=== PATIENT | male | born 1990 | race Caucasian/White ===

== ENCOUNTER 2020-06-25 13:44 | Emergency (ER) | payer OTHER, SELFPAY ==
--- NOTE | ~2020-06-25 | XR_ITS ---
EXAMINATION: XR hand RT min 3V EXAM DATE: 06/25/2020 14:10 INDICATION: Initial encounter following injury, with pain of the right hand. TECHNIQUE: Right hand frontal, lateral and oblique projections obtained and reviewed. There is no pr ior study for comparison. FINDINGS: There is old right 5th metacarpal fracture. There is cortical irregularity at the proximal aspect of the 4th metacarpal bone, could be an acute closed posttraumatic fracture although can't co mpletely exclude that this is chronic finding given the 5th metacarpal fracture. This finding has bee n indicated, marked on the examination for review, clinical correlation. Did patient have known 4th metacarpal fracture as well? IMPRESSION: Right 4th metacarpal cortical irregularity proximally, could be acute nondisplaced fract ure into the carpometacarpal joint. Clinical correlation. Reviewed, dictated and finalized at location A. IMPRESSION: Right 4th metacarpal cortical irregularity proximally, could be ac roseann nondisplaced fracture into the carpometacarpal joint. Clinical correlation.
--- NOTE | 2020-06-25 13:51 | ED.UPPEXIN ---
HPI - Extremity Injury (Upper) General Chief Complaint: Extremity Injury, Upper Stated Complaint: right hand injury Time Seen by Provider: 06/25/20 13:51 Source: patient and RN notes reviewed History of Present Illness HPI narrative: Patient is a 29-year-old male who presents the urgent care with complaints of right hand pain. Patient states that 3 years ago he had a bad right hand fractures and it does intermittently cause him pain at times. Patient states that over the weekend he was doing a lot of yard work and noticed some swelling to the right hand and heard a pop . Patient denies of any known reinjury this weekend. Has not used anything for the pain. Has noticed increased stiffness in the mornings. No other acute complaints. No acute distress noted. Patient read the plan of care. Related Data Home Medications Medication Instructions Recorded Confirmed [id number] K tablet PO 06/25/20 [Adults Multivitamin] Allergies Allergy/AdvReac Type Severity Reaction Status Date / Time amoxicillin Allergy Severe Rash Verified 06/25/20 14:01 penicillin G Allergy Severe Rash Verified 06/25/20 14:01 Review of Systems Review of Systems: Narrative: CONSTITUTIONAL: Denies fever, chills, or sweats. EYES: Denies visual changes, redness, or discharge. ENT: Denies rhinorrhea, congestion, sore throat, or otalgia. CARDIOVASCULAR: Denies chest pain, palpitations, or edema. RESPIRATORY: Denies cough or dyspnea. GASTROINTESTINAL: Denies abdominal pain, nausea, vomiting, or diarrhea. GENITOURINARY: Denies dysuria or hematuria. SKIN: Denies rash or itching. MUSCULOSKELETAL: Reports of right hand pain and swelling NEUROLOGIC: Denies headache, numbness, or weakness. All other systems reviewed are negative, except as documented in HPI. PMFSH Comments At the time of my signature, I reviewed and agree with the nursing past medical, surgical, social, and family history. There is no relevant family history pertinent to the patient complaint. Exam Narrative: Exam Narrative: GENERAL: This is a well-nourished, well-developed patient, in no apparent distress. HEAD: normocephalic, atraumatic. EYES: PERRL. Sclera clear/white. Vision is grossly intact. EARS: External ears normal NOSE: External nose normal with no obvious nasal discharge, nares without redness, no rhinorrhea. THROAT: Mucous membranes moist NECK: Neck supple SKIN: warm, intact with no suspicious lesions or rash, good texture and turgor. NEURO: awake, alert, and oriented to person, place and time. There were no obvious focal neurologic abnormalities. EXTREMITIES: Course Vital Signs Vital signs: Vital Signs Temperature 99.2 F 06/25/20 13:53 Pulse Rate 93 06/25/20 13:53 Respiratory Rate 16 06/25/20 13:53 Blood Pressure 108/62 06/25/20 13:53 Pulse Oximetry 98 06/25/20 13:53 Temperature 99.2 F 06/25/20 13:53 Pulse Rate 93 06/25/20 13:53 Respiratory Rate 16 06/25/20 13:53 Blood Pressure 108/62 06/25/20 13:53 Pulse Oximetry 98 06/25/20 13:53 Reviewed MDM - Extremity Injury (Upper) MDM Narrative Medical decision making narrative: Reviewed x-ray results with the patient. He is aware the x-ray of the right hand x-ray is possible that there is an acute fracture, however due to your past it is likely an old fracture and does not necessarily need a temporary OCL placed at this time. Therefore, advised the patient to use his at home hand brace from his past orthopedic. Patient should refrain from injury strenuous activity involving the right hand. Use Tylenol/ibuprofen and ice as needed for pain and comfort. Take your disc and your x-ray report to your upcoming appointment with your PCP next week. If you prefer to follow-up with our plastics, use the referral on your discharge paperwork. Differential Diagnosis Differential diagnosis: Likely sprain and strain of wrist, finger sprain, dislocation of finger and fracture of hand Imaging
[2020-06-25 13:53] VITALS: BP 108/62; PULSE 93; RESP 16; TEMP 37.3; O2SAT 98
== END 2020-06-25 14:45 | disposition home or self-care (01) ==
PROVIDERS: Emergency Provider Nurse Practitioner Family
DX: G89.21 Chronic pain due to trauma (principal); M79.641 Pain in right hand
CPT/HCPCS: 73130; 99213; G0463